=== PATIENT | male | born 1980 | race Caucasian/White ===

== ENCOUNTER 2017-06-03 21:22 | Emergency (ER) | payer SELFPAY ==
[~2017-06-03] VITALS: Ht 177.8 cm; Wt 80.0 kg
[2017-06-03] MEDS ORDERED: MORPHINE SULFATE 4 MG/ML CPJ (NOT FOR IM USE) IV STA (22:27)
[2017-06-03] MEDS ORDERED: ONDANSETRON HCL 4MG/2ML VIAL IV STA (22:27)
[2017-06-03] MEDS ORDERED: KETAMINE HCL 50 MG/ML 10ML IV ONE (22:30)
[2017-06-03] MEDS ORDERED: PROPOFOL 200MG/20ML VIAL IV ONE (23:30)
[2017-06-04] MEDS ORDERED: MORPHINE SULFATE 4 MG/ML CPJ (NOT FOR IM USE) IV ONE (02:15)
[2017-06-04] MEDS ORDERED: KETOROLAC 30MG/ML VIAL IV ONE (02:15)
[2017-06-04 04:00] VITALS: BP 101/56
== END 2017-06-04 04:12 | disposition home or self-care (01) ==
LOC: ER 21:41
DX: S82.491A Other fracture of shaft of right fibula, initial encounter for closed fracture (principal); X58.XXXA Exposure to other specified factors, initial encounter; Y93.89 Activity, other specified; Y92.89 Other specified places as the place of occurrence of the external cause; Y99.8 Other external cause status
CPT/HCPCS: 27788; 73590; 73600; 96374; 96375; 99152; 99285; J1885; J2270; J2405; J3490; Z7610; J2704